=== PATIENT | female | born 1985 | race Caucasian/White ===

== ENCOUNTER 2016-04-02 22:47 | Emergency (ER) | payer SELFPAY ==
[2016-04-02] MEDS ORDERED: OPTIRAY 350 100 ML VIAL HMH IV ONE (22:48)
[2016-04-03] MEDS ORDERED: ONDANSETRON 4 MG VIAL ONE ×2 (01:06→02:53)
[2016-04-03] MEDS ORDERED: KETOROLAC 30 MG/ML VIAL ONE (01:06)
[2016-04-03] MEDS ORDERED: SODIUM CHLORIDE 0.9% 1,000 ML ONE (01:06)
[2016-04-03] MEDS ORDERED: MORPHINE 4 MG/ML SYR ONE (02:53)
== END 2016-04-03 04:44 | disposition home or self-care (01) ==
LOC: ER 22:47
DX: N83.291 Other ovarian cyst, right side (principal)
CPT/HCPCS: 36415; 74177; 80053; 81001; 83690; 84703; 85025; 87491; 87591; 87800; 96361; 96374; 96375; 96376